=== PATIENT | male | born 1970 | race Caucasian/White ===

== ENCOUNTER 2024-10-19 22:07 | Emergency (ER) | payer MEDICAID ==
[~2024-10-19] VITALS: Ht 190.5 cm; Wt 79.2 kg
[2024-10-19 22:12] VITALS: PULSE 86; RESP 15; O2SAT 98
[2024-10-19] MEDS: dexamethasone sod phosphate 10mg/ml inj IM ONE (23:03)
[2024-10-19] MEDS: epiNEPHrine 1 mg/ml inj IM ONE (23:03)
[2024-10-19] MEDS: diphenhydrAMINE 50 mg/ml inj IM ONE (23:03)
[2024-10-19] MEDS ORDERED: PRED20TA PO (23:28)
[2024-10-19] MEDS ORDERED: SKIN30CL4 TP (23:28)
[2024-10-19] MEDS ORDERED: EPIN0.3P3 IM (23:28)
[2024-10-19] MEDS ORDERED: HYDR-3686 PO (23:28)
[2024-10-19 23:30] VITALS: TEMP 98.6
== END 2024-10-19 23:39 | disposition home or self-care (01) ==
LOC: ER 22:08
DX: L23.7 Allergic contact dermatitis due to plants, except food (principal)
CPT/HCPCS: 96372; 99284; J0171; J1100; J1200